=== PATIENT | male | born 1985 | race Caucasian/White ===

== ENCOUNTER 2022-04-11 07:46 | Emergency (ER) | payer SELFPAY ==
[~2022-04-11] VITALS: Ht 172.7 cm; Wt 81.0 kg
[2022-04-11 08:15] VITALS: BP 130/70
[2022-04-11] MEDS ORDERED: KETOROLAC TROMETH 60MG/2ML VIAL IM ONE (08:30)
[2022-04-11] MEDS ORDERED: CEPH-510 PO (08:37)
[2022-04-11] MEDS ORDERED: TRIA0.1O TOP (08:37)
== END 2022-04-11 08:39 | disposition home or self-care (01) ==
LOC: EDBD 07:46 → ER 07:46
DX: M79.671 Pain in right foot (principal); M79.672 Pain in left foot
CPT/HCPCS: 96372; 99283; J1885